=== PATIENT | female | born 1950 | race Caucasian/White ===

== ENCOUNTER 2022-03-13 15:35 | Emergency (ER) | payer MEDICARE, OTHER ==
[~2022-03-13] VITALS: Wt 54.4 kg
[2022-03-13 16:26] LABS: BASO % 0.3 % (0.0-1.0); EOS # 0.1 10*3/uL (0.0-0.4); EOS % 0.9 % (1.0-4.0); LYMPH # 2.1 10*3/uL (1.3-4.4); LYMPH % 21.4 % (27.0-41.0); MEAN CELL VOLUME 88.2 fl (81.0-99.0); MEAN CORPUSCULAR HGB 31.2 pg (27.0-31.0); MEAN CORPUSCULAR HGB CONC 35.3 g/dl (33.0-37.0); MONO # 0.7 10*3/uL (0.1-1.0); MONO % 6.7 % (3.0-9.0); NEUT % 70.5 % (47.0-73.0); PLATELET COUNT AUTOMATED 356 10*3/uL (130-400); RED CELL DISTRI WIDTH 12.5 % (0-14.5)
[2022-03-13 16:42] LABS: ALKALINE PHOSPHATASE 96 U/L (46-116); BUN < 5 mg/dl (9-23); CHLORIDE 99 mmol/L (98-107); LIPASE 29 U/L (12-53); POTASSIUM 2.8 mmol/L (3.4-5.1); SGPT/ALT 10 U/L (10-49)
[2022-03-13 17:22] LABS: BILIRUBIN Negative (Negative); BLOOD Negative (Negative); CLARITY Clear (Clear); COLOR Yellow (Yellow); GLUCOSE Negative (Negative); KETONE Negative (Negative); LEUKO ESTERASE Negative (Negative); NITRITE Negative (Negative); PH 7.5 (4.5-8.0); SPECIFIC GRAVITY <= 1.005 (1.001-1.030); UROBILINOGEN 0.2 E.U./dl (0.0-1.0)
[2022-03-13 17:50] LABS: EPITHELIAL CELLS 0-2; RBC 0-2 rbc/hpf (0-2); WBC 0-2 wbc/hpf (0-5)
[2022-03-13] MEDS ORDERED: K-TAB20 MEQ PO (19:51)
== END 2022-03-13 20:19 | disposition home or self-care (01) ==
LOC: ED 15:35
PROVIDERS: Physician Assistant
DX: E86.0 Dehydration (principal); E87.6 Hypokalemia; Z98.51 Tubal ligation status; Z98.890 Other specified postprocedural states

== ENCOUNTER → 2024-09-16 | Outpatient (CLI) | payer MEDICARE ==
[~2024-09-16] MED LIST: K-TAB20 MEQ PO
== END | disposition home or self-care (01) ==
LOC: RAD 09:20
PROVIDERS: ATTEND Physician Assistant
DX: R60.0 Localized edema (principal); M91 Juvenile osteochondrosis of hip and pelvis; Z98.82 Breast implant status